=== PATIENT | female | born 1960 | race Caucasian/White ===

== ENCOUNTER 2022-09-16 09:55 | Outpatient (CLI) | payer OTHER, SELFPAY ==
--- NOTE | ~2022-09-16 | MM_ITS ---
EXAMINATION: MM screening maribeth BI w sallie HISTORY: Screening TECHNIQUE: Craniocaudal and mediolateral oblique 3-D tomosynthesis images were obtained and synthetic 2-D images were generated. CAD analysis was submitted and interpreted. COMPARISON: No prior mammogram is available for comparison at this institution. BREAST PARENCHYMAL COMPOSITION: There are scattered areas of fibroglandular density. FINDINGS: There is a focal asymmetry laterally in the left breast on CC view, middle third. No mammog raphic evidence for malignancy in the right breast. IMPRESSION: 1. Focal left breast asymmetry laterally on CC view. 2. Additional mammographic views and possible breast ultrasound are recommended. BI-RADS Category 0: Incomplete: Needs additional imaging evaluation. Reviewed, dictated and finalized at location A. IMPRESSION: 1. Focal left breast asymmetry laterally on CC view. 2. Additional mammographic views and possible breast ultrasound are recommended . BI-RADS Category 0: Incomplete: Needs additional imaging evaluation.
== END 2022-09-16 09:56 | disposition home or self-care (01) ==
PROVIDERS: PCP Family Medicine
DX: Z12.31 Encounter for screening mammogram for malignant neoplasm of breast (principal); R92.8 Other abnormal and inconclusive findings on diagnostic imaging of breast
CPT/HCPCS: 77063; 77067

== ENCOUNTER 2022-10-24 11:18 | Outpatient (CLI) | payer OTHER, SELFPAY ==
--- NOTE | ~2022-10-24 | MM_ITS ---
EXAMINATION: MM diagnostic maribeth LT w sallie HISTORY: Focal asymmetries of the left breast on screening mammogram TECHNIQUE: Additional 3-D tomosynthesis images of the left breast were performed and synthetic 2-D im ages were generated. CAD analysis was submitted and interpreted. COMPARISON: 09/16/2022, 06/01/2021, 05/04/2020 BREAST PARENCHYMAL COMPOSITION: There are scattered areas of fibroglandular density. FINDINGS: There is a return to baseline fibroglandular appearance with spot compression of the left b reast in the areas questioned on screening mammogram. IMPRESSION: 1. No mammographic evidence of malignancy. 2. Recommend routine screening mammography in one year. BI-RADS Category 1: Negative Reviewed, dictated and finalized at location A.
== END 2022-10-24 11:19 | disposition home or self-care (01) ==
PROVIDERS: PCP Family Medicine
DX: R92.8 Other abnormal and inconclusive findings on diagnostic imaging of breast (principal)
CPT/HCPCS: 77061; 77065; G0279

== ENCOUNTER 2024-11-02 15:24 | Outpatient (CLI) | payer OTHER, SELFPAY ==
--- NOTE | ~2024-11-02 | MM_ITS ---
EXAMINATION: MM screening maribeth BI w sallie HISTORY: Screening TECHNIQUE: Craniocaudal and mediolateral oblique 3-D tomosynthesis images were obtained and synthetic 2-D images were generated. CAD analysis was submitted and interpreted. COMPARISON: Comparison to multiple prior studies sequentially, with oldest reviewed study dated 04/23. BREAST PARENCHYMAL COMPOSITION: Not dense: There are scattered areas of fibroglandular density. FINDINGS: There is no evidence of suspicious mass, calcification, or architectural distortion to sugg est malignancy in either breast. There has been no suspicious interval change. IMPRESSION: 1. No mammographic evidence of malignancy. 2. Recommend routine screening mammography in one year. BI-RADS Category 1: Negative Reviewed, dictated and finalized at location A.
--- OUTSIDE RECORDS SUMMARY | 2024-11-02 15:28 | XMS_ITS | Encounter Summary ---
Author Organization [facility] Address [address] [place] [address] Care Team Providers Care Chief Warden Name Role Phone Gentry Solorzano MD Primary Care Provider [phone] Encounter Details Date Type Department Care Team (Latest Contact Info) Description 12/16/2007 Outpatient Historical [facility] ABLE BODIED WATCHMAN - Medical [facility] [id number] [facility] [address] [address] Lennox Medrano MD [address] [facility] [address] [place] [address] Routine Gynecological Examination Social History Tobacco Use Types Packs/Day Years Used Date Smoking Tobacco: Never Assessed Comments Unknown Sex and Gender Information Value Date Recorded Sex Assigned at Not on file 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 Gender Identity Not on file Sexual Orientation Not on file documented as of this encounter Plan of Treatment Not on file documented as of this encounter Procedures Procedure Name Priority Date/Time Associated Diagnosis Comments CERV/VAG CYTOPATH, SUREPATH W/RFLX HPV Routine 12/16/2007 9:35 AM CDT documented in this encounter Results * CERV/VAG CYTOPATH, SUREPATH W/RFLX HPV (12/16/2007 9:35 AM CDT) SOURCE Information not provided [facility] LAST MENSTRUAL PERIOD Information not provided [facility] CYTOTECHNOLOGI ST: PCM, CT(ASCP) [facility] Comment: Lab test performed by: [employer] [facility] [address] [place] [id number] PAUL RICE MD REPORT STATUS FINAL [facility] Veneer Sorter Pap Comment Based on the cytology result, reflex High Risk HPV DNA testing was not performed. [facility] ADEQUACY: Satisfactory for evaluation. Endocervical/trans formation zone component present. Age and/or menstrual status not provided [facility] PREV PAP: Information not provided [facility] CLINICAL INFORMATION Information not provided [facility] PREV BX: Information not provided [facility] PAP INTERP Negative for intraepithelial lesion or malignancy. [facility] Specimen from uterine cervix (specimen) 12/16/2007 9:35 AM CDT 12/17/2007 9:37 AM CDT us Lennox Medrano MD PATHOLOGY/CYTOLOGY ORDERABLE S Final Result [facility] CLIA# [id number] [address] [place] [address] documented in this encounter Visit Diagnoses Diagnosis Routine gynecological examination documented in this encounter Care Teams Chief Warden Relationship Specialty Start Date End Date Gentry Solorzano MD PCP - General 06/09/15 documented as of this encounter
--- OUTSIDE RECORDS SUMMARY | 2024-11-02 15:28 | XMS_ITS | Clinical Summary ---
Author Organization [facility] Address [address] [facility] [place] [address] Phone Care Team Providers Care Investigator Fraud Name Role Phone Gentry Solorzano MD Primary Care Provider [phone] Allergies Active Allergy Reactions Criticality Noted Date Comments Levofloxacin Swelling Low 01/10/2010 Medications atorvastatin (LIPITOR) 10 mg tablet Take 10 mg by mouth late in the day. Active montelukast (SINGULAIR) 10 mg tablet TAKE 1 TABLET BY MOUTH EVERY DAY 5 11/03/19 17 Active ergocalciferol (VITAMIN D2) 50,000 unit capsule 01/28/20 19 Active fluticasone propionate (FLONASE) 50 mcg/spray [place], Suspension nasal inhaler Administer 2 Sprays in each nostril daily. 5 12/30/19 19 Active cetirizine (ZyrTEC) 10 mg tablet TAKE 1 TABLET BY MOUTH EVERY DAY IN THE MORNING 03/21/20 20 Active semaglutide (WEGOVY SUBCUT) Inject by subcutaneous injection. Active albuterol sulfate HFA 90 mcg/actuation aerosol inhaler Inhale 2 puffs every 4 hours by inhalation route. Active amoxicillin (AMOXIL) 500 mg capsule Take 1 capsule twice a day by oral route for 10 days. Active amoxicillin (AMOXIL) 875 mg tablet Take 1 Tablet by mouth every 12 hours. Active azithromycin (ZITHROMAX) 250 mg tablet TAKE 2 TABLETS BY MOUTH TODAY, THEN TAKE 1 TABLET DAILY FOR 4 DAYS DIRECTED Active benzonatate (TESSALON) 100 mg capsule TAKE 1 CAPSULE BY MOUTH EVERY 4 HOURS NEEDED FOR COUGH Active benzonatate (TESSALON) 200 mg capsule Take 1 capsule 3 times a day by oral route as needed. Active doxycycline hyclate (VIBRAMYCIN) 100 mg tablet TAKE 1 TABLET BY MOUTH TWICE A DAY FOR 7 DAYS Active predniSONE (DELTASONE) 20 mg tablet TAKE 2 TABLETS BY MOUTH EVERY DAY FOR 5 DAYS Active promethazine-ph enyleph-codeine (PHENERGAN VC w/COD) 6.25-5-10 mg/5 mL Syrup Take 5 mL every 4 hours by oral route. Active sodium, potassium and magnesium sulfates (SUPREP) 17.5-3.13-1.6 gram Recon Soln USE DIRECTED Active prasterone, dhea, ([place]) 6.5 mg InsertIndicatio ns:Vaginal atrophy Insert 1 Suppository vaginally daily at bedtime. 90 Each 3 04/28/20 24 Active DHEA 10 mg vaginal suppository compound Insert 1 Suppository vaginally daily at bedtime for 14 days, then 3 times weekly thereafter. 90 Suppository 3 4 3:13 PM HYDROSTATIC TUBING TESTER 05/10/20 24 Active Active Problems Problem Noted Date Diagnosed Date Bronchitis 07/13/2023 Cough 12/16/2022 Acute right otitis media 11/27/2022 Acute upper respiratory infection 05/30/2022 Disorder of sacrum 05/30/2022 Lumbosacral spondylosis without myelopathy 05/30 Menopausal flushing 05/30/2022 Sleep disorder 05/30/2022 Prediabetes 10/23/2021 Chronic sinusitis 08/27/2018 Hyperlipidemia 08/04/2017 2012: [facility] 08/16/2011 Overview (08/30/2011): Fibroid uterus 895 grams Vitamin D deficiency 01/19/2011 Overview (01/19/2011): 78474 replacement x 6 months Perimenopause Abnormal Pap smear Overview (01/10/2010): ASCUS Resolved Problems Problem Noted Date Diagnosed Date Resolved Date Fibroid uterus 01/14/2011 03/28/2012 Adenomyoma 01/10/2010 03/28/2012 Encounters Date Type Department Care Team Description 09/21/2024 External Device Data STL ABSTRACTION Provider, Abstract 09/08/2024 External Device Data STL ABSTRACTION Provider, Abstract 08/31/2024 External Device Data STL ABSTRACTION Provider, Abstract 08/31/2024 External Device Data STL ABSTRACTION Provider, Abstract 08/30/2024 External Device Data STL ABSTRACTION Provider, Abstract 08/28/2024 External Device Data STL ABSTRACTION Provider, Abstract 08/27/2024 External Device Data STL ABSTRACTION Provider, Abstract 08/24/2024 External Device Data STL ABSTRACTION Provider, Abstract 08/10/2024 External Device Data STL ABSTRACTION Provider, Abstract from Last 3 Months Immunizations Immunization Administration Dates Next Due (ADACEL/BOOSTRIX)(10 YR UP) TDAP VACCINE, 0.5ML, IM 09/12/2022 (SHINGRIX)(50 YRS UP) ZOSTER VACCINE RECOMBINANT, 0.5 ML, IM 03/27/2020 INFLUENZA VACCINE QUADRIVALE NT 6 MOS UP CELL DERIVED PF IM 03/21/2020 Family History Medical History Relation Name Comments Healthy Brother 1 Jay Healthy Brother 2 Chris Healthy Daughter Rosetta Diabetes Father Don Erin Heart Disease Father Don Erin Heart Failure Father Don Erin CHF Diabetes Maternal Grandfather Rex Bateman Diabetes Maternal Grandmother Shanon Bateman Unknown Maternal Grandmother Shanon Bateman Healthy Mother Healthy Other H-Robbin Diabetes Paternal Grandfather Rex Erin Stroke Paternal Grandfather Rex Erin Diabetes Paternal Grandmother Healthy Sister Radha Healthy Son Humberto Relation Name Status Comments Brother 1 Jay Alive Brother 2 Chris Alive Daughter Rosetta Alive Father Don Erin Maternal Grandfather Rex Bateman Maternal Grandmother Shanon Bateman Mother Alive Other H-Robbin Alive Paternal Grandfather Rex Erin Paternal Grandmother Sister Radha Alive Son Humberto Alive Social History Tobacco Use Types Packs/Day Years Used Date Smoking Tobacco: Former Cigarettes Q uit: 06/23/2002 Smokeless Tobacco: Never Tobacco Cessation:Counseling Given: Not Answered Alcohol Use Standard Drinks/Week Comments Yes 1 (1 standard drink = 0.6 oz pur e alcohol) Comments No Sex and Gender Information Value Date Recorded Sex Assigned at Not on file 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 Gender Identity Not on file Sexual Orientation Not on file Occupation Industry Job Start Date Job End Date Not on file Not on file Not on file Not on file Last Filed Vital Signs Vital Sign Reading Time Taken Comments Blood Pressure 164/108 05/30/2022 11:26 AM HYDROSTATIC TUBING TESTER Pulse 98 08/17/2011 9:12 AM HYDROSTATIC TUBING TESTER Temperature 36.8 C (98.3 F) 08/17/2011 9:12 AM HYDROSTATIC TUBING TESTER Respiratory Rate 18 08/17/2011 9:12 AM HYDROSTATIC TUBING TESTER Oxygen Saturation 96% 08/17/2011 9:12 AM HYDROSTATIC TUBING TESTER Inhaled Oxygen Concentration - - Weight 95.7 kg (211 lb) 11/06/2023 10:48 AM CDT Height 165.1 cm (5' 5 ) 11/06/2023 10:48 AM CDT Body Mass Index 35.11 11/06/2023 10:48 AM CDT Plan of Treatment Health Maintenance Due Date Last Done Comments Pre-Diabetes and Diabetes Screening 1960 FIT-DNA Q 3 years 2007 FIT/FOBT Q 1 year 2007 Flex Sig/CT Colonography Q 5 years 2007 ZOSTER VACCINE (2 of 2) 05/22/2020 03/27/2020 BREAST CANCER SCREENING 10/25/2023 10/25/19, 10/24/2022, 07/02/2017, Additional history exists INFLUENZA VACCINE (#1) 2024 03/21/2020 COLORECTAL SCREENING 05/12/2024 05/12/2014, 03/23/2014 (Previously completed) Colorectal Cancer Screening 05/12/2024 DTAP/TDAP/TD VACCINES (2 - T d or Tdap) 09/12/2032 09/12/2022 RSV VACCINE (60+ or ) (1 - 1-dose 75+ series) 2037 Medical Devices Implanted Type Area Pre Sales Technical Consultant Device Identifier Shelf Expiration Date Model / Serial / Lot Sealant Hemaflex [id number] Implanted:Qty : 1 on 08/16/2011 by Esperanza Segura MD at [facility] Biological N/A: Abdomen [employer] 09/21/2013 [id number] / / [id number] Procedures Procedure Name Priority Date/Time Associated Diagnosis Comments MAMMO DIAG UNI LEFT 3D JUNE W OR WO CAD Routine 10/24/2022 Abnormal finding on breast imaging from Last 3 Months or Most Recently Relevant to Health Maintenance Results * MAMMO DIAG UNI LEFT 3D JUNE W OR WO CAD (10/24/2022) Anatomical Region Laterality Modality Breast Left Mammography us Lennox Medrano MD MAMMO ORDERABLES Final Resul t from Last 3 Months or Most Recently Relevant to Health Maintenance Insurance [employer] PPO RX [facility] [employer] Advance Directives For more information, please contact: [phone] * Full Code (Latest Code Status on File) Date Activated Date Inactivated Comments 08/16/2011 4:12 PM 08/17/2011 1:02 PM * Full Code Date Activated Date Inactivated Comments 08/16/2011 8:36 AM 08/16/2011 4:12 PM Care Teams Investigator Fraud Relationship Specialty Start Date End Date Gentry Solorzano MD PCP - General 06/09/15
--- OUTSIDE RECORDS SUMMARY | 2024-11-02 15:28 | XMS_ITS | Data Portability ---
Author Organization [facility], Main Office Address [address] [place] [address] Care Team Providers Care Event Planning Manager Name Role Phone YO JENNINGS Primary Care Provider [phone] YO JENNINGS Referring Provider Assessment No assessment recorded. Plan of Treatment Reminders Order Date Submit Date Provider Last Modified By Organization Details Last Modified Time Details Appointments None recorded. Lab None recorded. Referral None recorded. Procedures None recorded. Surgeries None recorded. Imaging None recorded. Medication Orders benzonatate 200 mg capsule [address] [facility] #[id number], [address], [place], [address], 12:21:43 Patient TargetsNo targets recorded. Patient InstructionsNo instructions recorded. Reason for Referral None Reported. Results Created Date Observation Date Name Description Value Unit Range Abnormal Flag Note LastModifiedBy Organization Detail LastModifiedTime 10/20/19 22 10/20/2021 TSH TSH 2.170 uIU/m L 0.450- 4.500 Not Available [facility] ([facility]) [address], [place], [address], 10/20/2021 05:09:32 10/20/19 22 10/20/2021 HEMOG LOBIN A1C hemoglobin A1C 5.7 % 4.8-5. 6 above high normal Predi abete s: 5.7 - 6.4 Diabe angelina: >6.4 Glyce chrystal contr ol for adult s with diabe angelina: <7.0 Not Available [facility] ([facility]) [address] [facility] [place], [address], 10/20/2021 05:09:31 10/20/19 22 10/20/2021 LIPID PANEL cholesterol, total 179 mg/dL 100-19 9 Not Available [facility] ([facility]) [address] [facility] [place], [address], 10/20/2021 05:09:31 10/20/19 22 10/20/2021 LIPID PANEL triglyceride s 94 mg/dL 0-149 Not Available [facility] ([facility]) [address] [facility] [place], [address], 10/20/2021 05:09:31 10/20/19 22 10/20/2021 LIPID PANEL HDL cholesterol 61 mg/dL >39 Not Available [facility] ([facility]) [address] [facility] [place], [address], 10/20/2021 05:09:31 10/20/19 22 10/20/2021 LIPID PANEL VLDL cholesterol skye 17 mg/dL 5-40 Not Available [facility] ([facility]) [address] [facility] [place], [address], 10/20/2021 05:09:31 10/20/19 22 10/20/2021 LIPID PANEL LDL chol calc ([facility]) 101 mg/dL 0-99 above high normal Not Available [facility] ([facility]) [address] [place], [address], 10/20/2021 05:09:31 10/20/19 22 10/20/2021 LIPID PANEL comment: sheet metal erector Not Available [facility] ([facility]) [address] [facility] [place], [address], 10/20/2021 05:09:31 10/20/19 22 10/20/2021 BASIC METAB OLIC PANEL (8) glucose 99 mg/dL 65-99 Not Available [facility] ([facility]) [address] [facility] [place], [address], 10/20/2021 05:09:30 10/20/19 22 10/20/2021 BASIC METAB OLIC PANEL (8) BUN 16 mg/dL 6-24 Not Available [facility] ([facility]) [address] [place], [address], 10/20/2021 05:09:30 10/20/19 22 10/20/2021 BASIC METAB OLIC PANEL (8) creatinine 0.72 mg/dL 0.57-1 .00 Not Available [facility] ([facility]) [address] [place], [address], 10/20/2021 05:09:30 10/20/19 22 10/20/2021 BASIC METAB OLIC PANEL (8) eGFR 96 mL/mi n/1.7 3 >59 Not Available [facility] ([facility]) [address] [facility], [place], [address], 10/20/2021 05:09:30 10/20/19 22 10/20/2021 BASIC METAB OLIC PANEL (8) BUN/creatini ne ratio 22 9-23 Not Available [facility] ([facility]) [address] [facility] [place], [address], 10/20/2021 05:09:30 10/20/19 22 10/20/2021 BASIC METAB OLIC PANEL (8) sodium 138 mmol/ L 134-14 4 Not Available [facility] ([facility]) [address] [facility] [place], [address], 10/20/2021 05:09:30 10/20/19 22 10/20/2021 BASIC METAB OLIC PANEL (8) potassium 4.9 mmol/ L 3.5-5. 2 Not Available [facility] ([facility]) [address] [facility] [place], [address], 10/20/2021 05:09:30 10/20/19 22 10/20/2021 BASIC METAB OLIC PANEL (8) chloride 100 mmol/ L 96-106 Not Available [facility] ([facility]) [address] [facility], [place], [address], 10/20/2021 05:09:30 10/20/19 22 10/20/2021 BASIC METAB OLIC PANEL (8) carbon dioxide, total 22 mmol/ L 20-29 Not Available [facility] ([facility]) [address] [facility], [place], [address], 10/20/2021 05:09:30 10/20/19 22 10/20/2021 BASIC METAB OLIC PANEL (8) calcium 9.9 mg/dL 8.7-10 .2 Not Available [facility] ([facility]) [address] [facility], [place], [address], 10/20/2021 05:09:30 10/20/19 22 10/20/2021 CBC/D IFF AMBIG UOUS DEFAU LT MCH 30.6 pg 26.6-3 3.0 Not Available [facility] ([facility]) [address] [place], [address], 10/20/2021 05:09:30 10/20/19 22 10/20/2021 CBC/D IFF AMBIG UOUS DEFAU LT WBC 6.3 x10e3 /uL 3.4-10 .8 Not Available [facility] ([facility]) [address] [facility], [place], [address], 10/20/2021 05:09:30 10/20/19 22 10/20/2021 CBC/D IFF AMBIG UOUS DEFAU LT RBC 5.00 x10e6 /uL 3.77-5 .28 Not Available [facility] ([facility]) [address] [facility], [place], [address], 10/20/2021 05:09:30 10/20/19 22 10/20/2021 CBC/D IFF AMBIG UOUS DEFAU LT hemoglobin 15.3 g/dL 11.1-1 5.9 Not Available [facility] ([facility]) [address] [facility], [place], [address], 10/20/2021 05:09:30 10/20/19 22 10/20/2021 CBC/D IFF AMBIG UOUS DEFAU LT hematocrit 45.2 % 34.0-4 6.6 Not Available [facility] ([facility]) [address] [facility], [place], [address], 10/20/2021 05:09:30 10/20/19 22 10/20/2021 CBC/D IFF AMBIG UOUS DEFAU LT MCV 90 fL 79-97 Not Available [facility] ([facility]) [address] [facility], [place], [address], 10/20/2021 05:09:30 10/20/19 22 10/20/2021 CBC/D IFF AMBIG UOUS DEFAU LT MCHC 33.8 g/dL 31.5-3 5.7 Not Available [facility] ([facility]) [address] [place], [address], 10/20/2021 05:09:30 10/20/19 22 10/20/2021 CBC/D IFF AMBIG UOUS DEFAU LT RDW 12.3 % 11.7-1 5.4 Not Available [facility] ([facility]) [address] [place], [address], 10/20/2021 05:09:30 10/20/19 22 10/20/2021 CBC/D IFF AMBIG UOUS DEFAU LT platelets 234 x10e3 /uL 150-45 0 Not Available [facility] ([facility]) [address] [place], [address], 10/20/2021 05:09:30 10/20/19 22 10/20/2021 CBC/D IFF AMBIG UOUS DEFAU LT neutrophils 46 % not estab. Not Available [facility] ([facility]) [address] [facility], [place], [address], 10/20/2021 05:09:30 10/20/19 22 10/20/2021 CBC/D IFF AMBIG UOUS DEFAU LT lymphs 40 % not estab. Not Available [facility] ([facility]) [address] [facility], [place], [address], 10/20/2021 05:09:30 10/20/19 22 10/20/2021 CBC/D IFF AMBIG UOUS DEFAU LT monocytes 10 % not estab. Not Available [facility] ([facility]) [address] [facility], [place], [address], 10/20/2021 05:09:30 10/20/19 22 10/20/2021 CBC/D IFF AMBIG UOUS DEFAU LT eos 3 % not estab. Not Available [facility] ([facility]) [address] [facility], [place], [address], 10/20/2021 05:09:30 10/20/19 22 10/20/2021 CBC/D IFF AMBIG UOUS DEFAU LT basos 1 % not estab. Not Available [facility] ([facility]) [address] [place], [address], 10/20/2021 05:09:30 10/20/19 22 10/20/2021 CBC/D IFF AMBIG UOUS DEFAU LT immature cells sheet metal erector Not Available [facility] ([facility]) [address] [place], [address], 10/20/2021 05:09:30 10/20/19 22 10/20/2021 CBC/D IFF AMBIG UOUS DEFAU LT neutrophils (absolute) 2.9 x10e3 /uL 1.4-7. 0 Not Available [facility] ([facility]) [address] [place], [address], 10/20/2021 05:09:30 10/20/19 22 10/20/2021 CBC/D IFF AMBIG UOUS DEFAU LT lymphs (absolute) 2.5 x10e3 /uL 0.7-3. 1 Not Available [facility] ([facility]) [address] [facility], [place], [address], 10/20/2021 05:09:30 10/20/19 22 10/20/2021 CBC/D IFF AMBIG UOUS DEFAU LT monocytes(ab solute) 0.6 x10e3 /uL 0.1-0. 9 Not Available [facility] ([facility]) [address] [facility], [place], [address], 10/20/2021 05:09:30 10/20/19 22 10/20/2021 CBC/D IFF AMBIG UOUS DEFAU LT eos (absolute) 0.2 x10e3 /uL 0.0-0. 4 Not Available [facility] ([facility]) [address] [facility], [place], [address], 10/20/2021 05:09:30 10/20/19 22 10/20/2021 CBC/D IFF AMBIG UOUS DEFAU LT baso (absolute) 0.1 x10e3 /uL 0.0-0. 2 Not Available [facility] ([facility]) [address] [facility], [place], [address], 10/20/2021 05:09:30 10/20/19 22 10/20/2021 CBC/D IFF AMBIG UOUS DEFAU LT immature granulocytes 0 % not estab. Not Available [facility] ([facility]) [address] [facility], [place], [address], 10/20/2021 05:09:30 10/20/19 22 10/20/2021 CBC/D IFF AMBIG UOUS DEFAU LT immature grans (abs) 0.0 x10e3 /uL 0.0-0. 1 Not Available [facility] ([facility]) [address] [facility], [place], [address], 10/20/2021 05:09:30 10/20/19 22 10/20/2021 CBC/D IFF BROOKE SMALL LT NRBC sheet metal erector Not Available [facility] ([facility]) [address] [facility], [place], [address], 10/20/2021 05:09:30 10/20/19 22 10/20/2021 CBC/D IFF BROOKE UOUS DEFAU LT hematology comments: sheet metal erector A hand- writt en panel /prof ile was recei justus from your offic e. In accor dance with the [facility] Ambig uous Test Code Polic y dated December 2002, we have assig alek CBC with Diffe andre al/Pl atezee t, Test Code #[address]. If this is not the testi ng you wishe d to recei ve on this speci men, pleas e conta ct the [facility] Clien t Inqui ry/ Techn ical Servi vikram Depar tment to caio fy the test order . We appre ciate your busin ess. Not Available [facility] ([facility]) [address] [facility], [place], [address], 10/20/2021 05:09:30 07/05/19 23 07/05/2022 rapid flu (A+B) Flu A negati ve Not Available [address] , [place], [address], 06/28/2022 13:11:11 07/05/19 23 07/05/2022 rapid flu (A+B) Flu B negati ve Not Available [address] , [place], [address], 06/28/2022 13:11:11 06/01/20 21 06/01/2021 scree kwadwo breas t june, bilat [facility] [address], [place] [address] [phone] Natasha najera Name: SID GREEN Access ion #: [id number] Sex: F : 1959 8 Locati on: RAD Attend ing Physic tiffanie: LOUIE LAWRENCE Orderi ng Physic tiffanie: LOUIE LAWRENCE Exam Date: 2020 10:17 AM Exam Name: MG STALEY BREAST JUNE BILAT Admitt ing Diagno sis(es ): MAMMOG GLYNN REPORT - FINAL EXAM: SCRLoy BREAST JUNE BILAT HISTOR Y: SCREEN ING MAMMOG BILLY 60-yea r-old female with no curren t breast compla ints. The natasha najera has a histor y of bilate ral breast reduct ion surger y Januar y 2003. COMPAR KAVEH: 2019, 2018 TECHNI QUE: Bilate ral CC and MLO views of the breast s were perfor med. Digita l Mammog glynn images were obtain ed. CAD (compu ter assist ed detect ion) was utiliz ed. 3D Digita l breast tomosy nthesi s was perfor med and used in the interp retati on of images . FINDIN GS: There are scatte red areas of fibrog landul ar densit y. Page 1 of 2 [facility] Natasha najera Name: SID GREEN Access ion #: [id number] Sex: F : 1959 10 Exam Date: 2020 10:17 AM Exam Name: MG STALEY BREAST JUNE BILAT Admitt ing Diagno sis(es ): No masses , asymme tries, suspic ious calcif icatio ns, or marianne ectura l distor tion are seen. IMPRES ELBA: BIRADS 1: Assess ment comple te. Negati ve. Recomm end annual screen ing mammog glynn. Accord ing to the [employer], yearly mammog estiven are recomm ended starti ng at age 40 and contin uing as long as the woman is in good health . Clinic al Breast Exam should be part of the period ic health exam-a bout every 3 years for women in their 20s and 30s and every year for women 40 and over. Breast self-e xam is an option for women in their 20s. Any breast change noted on the breast self-e xam she would be report ed prompt ly to the natasha najera's [facility] er. A negati ve mammog glnyn report should not discou rage follow -up or biopsy of a clinic ally signif icant findin g and/or abnorm ality. Dense breast tissue may obscur e small neopla sms. This natasha najera has been entere d into a mammog glynn remind er system with a target date for her next mammog billy. Create d and electr onical ly signed by: Cain pedraza MD Signed Date: 2020 11:53 AM (CT) Dictat ed by: Cain pedraza MD DD: 2020 11:53 AM (CT) DT: 2020 11:53 AM (CT) Page 2 of 2 [id number] [facility] (Imaging) [address] [place], [address], 08/21/2022 14:26:36 09/17/19 23 09/16/2022 MAMMO , scree kwadwo, digit al, bilat eral No observ ation record ed. [email or web address] [address], [address], 09/16/2022 12:38:05 09/27/19 23 09/16/2022 MAMMO , scree kwadwo, digit al, bilat eral No observ ation record ed. [address], [address], 10/18/2022 09:59:16 10/25/19 23 10/24/2022 MAMMO , diagn ostic , digit al, unila teral No observ ation record ed. [address], [place], [address], 10/25/2022 08:50:22 Result Notes None recorded. Problems Name Problem SNOMED Code Status Onset Date Resolution Date Notes Provider Name and Address Organization Details Recorded Time Disorder of sacrum 49262300 Active Not Available [facility] 3 15:49:39 Menopausal flushing 271809188 Active Not Available [facility] 3 15:49:39 Vitamin D deficiency 33508821 Active 2017 Not Available [facility] 3 15:49:39 Sinusitis 04368597 Active Not Available [facility] 3 15:49:39 Sleep disorder 95678657 Active Not Available [facility] 3 15:49:39 Chronic sinusitis 70540174 Active 2018 Not Available [facility] 3 15:49:39 Lumbosacral spondylosis without myelopathy 54374450 Active Not Available [facility] 3 15:49:39 Acute upper respiratory infection 16007033 Active Not Available [facility] 3 15:49:39 Hyperlipidemi a 88028537 Active 2017 Not Available [facility] 3 15:49:39 Prediabetes 497830702 Active 2021 Not Available [facility] 3 15:49:39 Seasonal allergy 132420198 Active 2022 Not Available [facility] 3 15:49:39 COVID-19 904785252 Active 2022 Not Available [facility] 3 15:49:39 Acute sinusitis 33583350 Active 2022 Not Available [facility] 3 15:49:39 Acute right otitis media 220801917 Active 2022 Not Available [facility] 3 15:49:39 Cough 87890933 Active 2022 Not Available [facility] 3 15:49:39 Bronchitis 08835685 Active 2023 Ashley Potts MD [address] [place] [address], [address], [address] , [place] [facility] 16:32:36 Problem Notes None recorded. Procedures Surgical History Date Name Laterality Status Provider Name and Address Organization Details Recorded Time 05/13/20 14 colonoscopy completed Not Available [facility] 08/22/19 14:16:29 Breast reduction completed Not Available [facility] 08/21/2022 14:16:29 Partial hysterectomy completed Not Available [facility] 08/21/2022 14:16:29 Imaging Results Imaging Date Name Status LastModified by Organiz ation Details LastModified Time 06/01/2021 screening breast june, bilat completed [id number] [facility] (Imaging) [address] [place], [address], 08/21/2022 14:26:36 09/16/2022 MAMMO, screening, digital, bilateral completed [address], [address], 09/16/2022 12:38:05 09/16/2022 MAMMO, screening, digital, bilateral completed [address], [address], 10/18/2022 09:59:16 10/24/2022 MAMMO, diagnostic, digital, unilateral completed [address], [address], 10/25/2022 08:50:22 Procedure Notes None recorded. Medical Equipment None Reported. Allergies Allergen ID Allergen Name Allergen Category Reaction Reaction Severity Criticality Documentation Date Start Date Code Code System Note Provider Name and Address Organization Details Recorded Time 12714 Levaquin medicatio n other moderate Not available 08/21/2022 63807 2 RxNorm Swell ing Not Available [facility] 14:26:23 Medications Name Sig Start Date Stop Date Status Note LastModified by Organization Details LastModified Time blood pressu solution kit active Not Available Not Available Not Available cyclobenzap rine 10 mg tablet Take 1 tablet 3 times a day by oral route as needed for 10 days. active Not Available Not Available No t Available amoxicillin 500 mg capsule Take 1 capsule twice a day by oral route for 10 days. active Not Available Not Available No t Available prednisone 10 mg tablet TAKE 3 TABLETS BY MOUTH X2DAYS THEN 2 TABS X 2DAYS THEN 1 TAB X2DAYS 03/10 completed Not Available Not Available Not Available cetirizine 10 mg tablet TAKE 1 TABLET BY MOUTH EVERY DAY IN THE MORNING 12/13 completed Not Available Not Available Not Available atorvastati n 10 mg tablet active Not Available Not Available Not Available azithromyci n 250 mg tablet TAKE 2 TABLETS BY MOUTH TODAY, THEN TAKE 1 TABLET DAILY FOR 4 DAYS DIRECTED active Not Available Not Available No t Available benzonatate 200 mg capsule Take 1 capsule 3 times a day by oral route as needed. active Not Available Not Available No t Available prednisone 20 mg tablet TAKE 2 TABLETS BY MOUTH EVERY DAY FOR 5 DAYS active Not Available Not Available No t Available acetaminoph en 300 mg-codeine 30 mg tablet 10/18 completed Not Available Not Available Not Available estradiol 0.05 mg/24 hr semiweekly transdermal patch 06/28 completed Not Available Not Available Not Available prednisone 10 mg tablets in a dose pack Take 1 tab by mouth, 3 times a day for 3 daysTake 1 tab by mouth 2 times a day for 2 daysTake 1 tab by mouth once a day for 1 day 10/18 completed Not Available Not Available Not Available Promethazin e VC-Codeine 6.25 mg-5 mg-10 mg/5 mL oral syrup Take 5 mL every 4 hours by oral route. active Not Available Not Available No t Available amoxicillin 875 mg tablet TAKE 1 TABLET BY MOUTH EVERY 12 HOURS FOR 7 DAYS active Not Available Not Available No t Available Kenalog 10 mg/mL suspension for injection In office injection administe red by the provider 10/18 completed [facility]: 0003- 0494- 20 Not Available Not Available Not Available benzonatate 100 mg capsule TAKE 1 CAPSULE BY MOUTH EVERY 4 HOURS NEEDED FOR COUGH active Not Available Not Available No t Available cephalexin 500 mg capsule 10/18 completed Not Available Not Available Not Available montelukast 10 mg tablet TAKE 1 TABLET BY MOUTH EVERYDAY AT BEDTIME 12/13 completed Not Available Not Available Not Available estradiol 0.5 mg tablet 12/13 completed Not Available Not Available Not Available ergocalcife rol (vitamin D2) 1,250 mcg (50,000 unit) capsule TAKE 1 CAPSULE BY MOUTH ONE TIME PER WEEK active Not Available Not Available No t Available methylpredn isolone 4 mg tablets in a dose pack Take by oral route. 09/10 completed Not Available Not Available Not Available fluticasone propionate 50 mcg/actuati on nasal spray,suspe nsion INSTILL 2 SPRAYS INTO EACH NOSTRIL ONCE DAILY active Not Available Not Available No t Available doxycycline hyclate 100 mg tablet TAKE 1 TABLET BY MOUTH TWICE A DAY FOR 7 DAYS active Not Available Not Available No t Available amoxicillin 875 mg-potassiu m clavulanate 125 mg tablet 03/11 completed Not Available Not Available Not Available Ventolin HFA 90 mcg/actuati on aerosol inhaler Inhale 2 puffs every 4 hours by inhalatio n route. active Not Available Not Available No t Available lidocaine (PF) 10 mg/mL (1 %) injection solution In office injection administe red by the provider 10/18 completed [facility]: [phone]- [phone]- [phone] Not Available Not Available Not Available Suprep Bowel Prep Kit 17.5 gram-3.13 gram-1.6 gram oral solution USE DIRECTED active Not Available Not Available No t Available Shingrix (PF) 50 mcg/0.5 mL intramuscul ar suspension, kit 05/27 completed Not Available Not Available Not Available Fluzone Quad (PF) 60 mcg (15 mcg x 4)/0.5 mL IM syringe TO BE ADMINISTE RED BY PHARMACIS T FOR IMMUNIZAT ION 05/27 completed Not Available Not Available Not Available Flucelvax Quad (PF) 60 mcg (15 mcg x 4)/0.5 mL IM syringe PHARMACY ADMINISTE RED 05/27 completed Not Available Not Available Not Available Wegovy 1 mg/0.5 mL subcutaneou s pen injector INJECT 1MG (0.5 ML) UNDER THE SKIN ONCE WEEKLY active Not Available Not Available No t Available Wegovy 0.25 mg/0.5 mL subcutaneou s pen injector INJECT 0.25 MG SUBCUTANE OUSLY WEEKLY 09/24 completed Not Available Not Available Not Available Wegovy 0.5 mg/0.5 mL subcutaneou s pen injector 0.5 ml sc qweek 10/26 completed Not Available Not Available Not Available Paxlovid 300 mg (150 mg x 2)-100 mg tablets in a dose pack TAKE 1 RITONAVIR TABLET AND 2 NIRMATREL VIR TABLETS BY MOUTH TWICE DAILY X5 DAYS 12/13 completed Not Available Not Available Not Available Vitals Date Recorded Body mass index (BMI) Body height Body weight Provider Name and Address Organization Details Last Updated DateTime 06/28/2021 34.9 kg/m2 165.1 cm 77699.4 g Not Available [facility] 08/21/2022 14:20:08 Date Recorded Body mass index (BMI) Body height Oxygen saturation Oxygen saturation in Arterial blood by Pulse oximetry Heart rate Body temperature Body weight Systolic blood pressure Diastolic blood pressure Provider Name and Address Organization Details Last Updated DateTime 3 36.6 kg/m2 165.1 cm 98 % 98 % 90 /min 97 [degF] 80791.3 2 g 138 mm[Hg] 76 mm[Hg] Not Available [facility] 3 14:20:05 Date Recorded Body height Provider Name an d Address Organization Details Last Updated DateTime 06/28/2022 165.1 cm Not Available [facility] 3 14:20:06 Date Recorded Body height Provider Name an d Address Organization Details Last Updated DateTime 09/12/2022 165.1 cm Sandrita López CMA [facility] 09/12/2022 12:43:46 Date Recorded Body height Body mass index (BMI) Body weight Body temperature Heart rate Oxygen saturation Oxygen saturation in Arterial blood by Pulse oximetry Systolic blood pressure Diastolic blood pressure Provider Name and Address Organization Details Last Updated DateTime 3 165.1 cm 35.9 kg/m2 60652.9 5 g 98.2 [degF] 90 /min 94 % 94 % 150 mm[Hg] 90 mm[Hg] Yamilex Smith RN [facility] 3 12:03:38 Social History Question Answer Notes LastModified by Organizat ion Details LastModified Time Tobacco Smoking Status Former Smoker Not Available [facility] 08/21/2022 14:16:16 What Is Your Level Of Caffeine Consumption? Moderate [id number] Information not available 08/21/2022 In The 14 Days Before Symptom Onset, Have You Had Close Contact With A Laboratory-confirm ed COVID-19 While That Case Was Ill? No [id number] Information not available 08/21/2022 In The 14 Days Before Symptom Onset, Have You Had Close Contact With A Person Who Is Under Investigation For COVID-19 While That Person Was Ill? No [id number] Information not available 08/21/2022 What Type Of Diet Are You Following? REGULAR [id number] Information not available 08/21/2022 What Is The Highest Grade Or Level Of School You Have Completed Or The Highest Degree You Have Received? [id number] [id number] Information not available 08/21/2022 When Did You Quit Smoking? 16+yearssince lastcigarette [id number] Information not available 08/21/2022 What Was The Date Of Your Most Recent Tobacco Screening? 06/28/2021 [id number] Information not available 08/21/2022 Have You Ever Been Counseled For Unhealthy Alcohol Use? No [id number] Information not available 08/21/2022 What Is Your Relationship Status? [id number].[id number] Information not available 08/21/2022 Do You Use Your Seat Belt Or Car Seat Routinely? Yes [id number] Information not available 08/21/2022 Has Tobacco Cessation Counseling Been Provided? No [id number].[id number] Information not available 08/21/2022 Do You Have Any Dietary Restrictions? No MIGRATION.[id number] [id number] Information not available 08/21/2022 Sex: Unknown Functional Status Question Answer Note LastModified by Organizat ion Details LastModified Time Do you use any illicit or recreational drugs? No [id number] Information not available 08/21/2022 Do you or have you ever used any other forms of tobacco or nicotine? No MIGRATION.[id number] 9447 Information not available 08/21/2022 What is your level of alcohol consumption? 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 Occasional [id number].[id number] 5108 Information not available 08/21/2022 Mental Status Question Answer Note LastModified by Organizat ion Details LastModified Time Do you feel stressed (tense, restless, nervous, or anxious, or unable to sleep at night)? [id number] Information not available 08/21/2022 Family History Relationship Description Onset Age of this Age Resolved Age Notes LastModified by Organization Details LastModified Time Father Diabetes mellitus [id number] Not available 08/21/2022 14:16:32 Father Cardiac arrhythmia [id number] Not available 08/21/2022 14:16:32 Medical History No medical history recorded. Gynecological History Statement/Question Response Abnormal Pap N Sexually Active? Y Weight gain N Dislike of Light during Menstrual Headac he N Menses Monthly N STIs/STDs N Current Control Method None Breast Problems no Discharge no Obstetrics History GPAL:G 0 P 0 0 0 0 Immunizations Vaccine Type Date Status Note Provider Nam e and Address Organization Details Recorded Time Tdap 09/12/2022 completed [facility]IR[place], [place] - [facility] 09/12/2022 12:49:26 Past Encounters Encounter ID Performer Location Encounter Start Date Encounter Closed Date Diagnosis/Indication Diagnosis SNOMED-CT Code Diagnosis ICD10 Code Diagnosis Note [id number] Ashley Potts MD [facility] [address] [place] [address] 06/28/2021 00:00:00 06/28/2021 11:39:35 [id number]|2024-11-02 15:28:00|2024-11-02 15:27:00|XMS_ITS|OJSEPHINE LOWE|External Medical Summaries|[id number]|" Encounter Summary Created on: November 02, 2024 Molly Green : 1960 Sex: Female Author Organization [facility] Address [address] [place] [address] Care Team Providers Care Event Planning Manager Name Role Phone Gentry Solorzano MD Primary Care Provider [phone] Encounter Details Date Type Department Care Team (Latest Contact Info) Description 12/16/2007 Outpatient [facility] [place] [address] [address] Lennox Medrano MD [address] [place] [address] Routine Gynecological Examination Social History Tobacco Use Types Packs/Day Years Used Date Smoking Tobacco: Never Assessed Comments Unknown Sex and Gender Information Value Date Recorded Sex Assigned at Not on file 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
--- OUTSIDE RECORDS SUMMARY | 2024-11-02 15:28 | XMS_ITS | Clinical Summary ---
Author Organization [facility] Address [address] [place] [address] Care Team Providers Care Clamp Carrier Operator Name Role Phone Unavailable Primary Care Provider Unavailabl e Source Comments [facility],non-owned Affiliates and Associated Physician Practices is amultiple site organization consisting of ambulatory clinics and hospital sitesin [place], [place], [place] and [place]. This disclosure is being madepursuant to the Care Everywhere program and may not contain all information available regarding this patient. Last updated 18.[facility] Allergies Active Allergy Reactions Criticality Noted Date Comments Levofloxacin Swelling 07/20/2018 Medications * Be aware that medications may not be up to date on this document. Alwaysverify current medications with the patient. 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 Gender Identity Not on file Sexual Orientation Not on file Last Filed Vital Signs Vital Sign Reading Time Taken Comments Blood Pressure 138/96 12/26/2018 10:01 AM CDT Pulse 95 12/26/2018 10:01 AM CDT Temperature 37.1 C (98.7 F) 12/26/2018 10:01 AM CDT Respiratory Rate 18 12/26/2018 10:01 AM CDT Oxygen Saturation 98% 12/26/2018 10:01 AM CDT Inhaled Oxygen Concentration - - Weight 95.3 kg (210 lb) 12/26/2018 10:01 AM CDT Height 165.1 cm (5' 5 ) 12/26/2018 10:01 AM CDT Body Mass Index 34.95 12/26/2018 10:01 AM CDT Plan of Treatment Health Maintenance Due Date Last Done Comments COLOGUARD (AGES 45-75) - COL ON CA SCREENING 1960 COLON MONITORING 1960 COLONOSCOPY - COLON CA SCREENING 1960 CT COLONOGRAPHY - COLON CA SCREENING 1960 Colorectal Cancer Screening 1960 FIT - COLON CA SCREENING 1962 FLEX SIG - COLON CA SCREENING 1960 LIPID TESTING 1960 MAMMOGRAM 1960 HIV SCREENING 1977 HEPATITIS C SCREENING 06/06/1980 DTAP/TDAP/TD VACCINES (1 - Tdap) 1981 PAP with HPV 1992 PNEUMOCOCCAL VACCINE 50+ (1 of 1 - PCV) 2012 ZOSTER VACCINE (1 of 2) 2012 SCREENING FOR DIABETES 07/20/2018 COVID-19 VACCINE ( - 2023-2 5 season) 2024 DEPRESSION SCREENING 06/23/2024 INFLUENZA VACCINE (Season Ended) 2025 Respiratory Syncytial Virus (RSV) Vaccine Pt: or over 60 yrs (1 - 1-dose 75+ series) 2037 HEPATITIS B VACCINE Aged Out No longe r eligible based on patient's age to complete this topic HIB VACCINE Aged Out No longer eligi ble based on patient's age to complete this topic HPV VACCINE Aged Out No longer eligi ble based on patient's age to complete this topic MENINGOCOCCAL (Group B) VACC INE SHARED DECISION-MAKING Aged Out No longer eligibl e based on patient's age to complete this topic MENINGOCOCCAL GROUPS A/C/Y/W VACCINE Aged Out No longer eligible b ased on patient's age to complete this topic Insurance [employer]
== END 2024-11-02 15:25 | disposition home or self-care (01) ==
PROVIDERS: PCP Family Medicine
DX: Z12.31 Encounter for screening mammogram for malignant neoplasm of breast (principal)
CPT/HCPCS: 77063; 77067